=== PATIENT | female | born 1935 | race Caucasian/White ===

== ENCOUNTER 2024-03-25 18:17 | Inpatient (IN) | payer OTHER ==
[2024-03-25] MEDS: LACTATED RINGERS SOLUTION 1000 ML INFUS.BAG IV ONE (19:19)
[2024-03-25 19:37] LABS: BASO % 0.7 % (0-2.0); EOS % 0.3 % (0-4.5); HEMATOCRIT 37.7 % (32.4-45.2); HEMOGLOBIN 12.4 GM/dL (10.7-15.3); LYMPH % 28.1 % (8-40); MCH 31.5 pg (25.7-33.7); MCHC 32.9 g/dl (32.0-36.0); MEAN CELL VOLUME 95.9 fl (80-96); MEAN PLT VOLUME 10.4 fl (7.5-11.1); MONO % 9.7 % (3.8-10.2); NEUT % 61.2 % (42.8-82.8); RBC 3.93 M/mm3 (3.60-5.2); RDW 13.9 % (11.6-15.6)
[2024-03-25 19:44] LABS: INR 1.86 (0.83-1.09); PROTHROMBIN TIME (PATIENT) 20.6 SEC (9.7-13.0)
[2024-03-25 19:45] LABS: PLATELET COUNT 127 10^3/uL (134-434)
[2024-03-25 19:47] LABS: ACTIVATED PTT 36.3 SECONDS (25.2-36.5)
[2024-03-25 20:05] LABS: POTASSIUM 3.9 mmol/L (3.5-5.1)
[2024-03-25 20:07] LABS: ALBUMIN 3.5 g/dl (3.4-5.0); BLOOD UREA NITROGEN 28.4 mg/dL (7-18); CALCIUM 9.3 mg/dL (8.5-10.1); MAGNESIUM 2.2 mg/dL (1.8-2.4)
[2024-03-25 20:10] LABS: CREATININE 1.2 mg/dL (0.55-1.3)
[2024-03-25 20:12] LABS: BILIRUBIN,TOTAL 0.9 mg/dL (0.2-1); TOT PROT 6.9 g/dl (6.4-8.2)
[2024-03-25 20:50] LABS: EPI CELLS 15 /uL (0-25.1); HYALINE CASTS 2 /uL (0-3.1); URINE APPEARANCE CLEAR; URINE BACTERIA 206 /uL (0-1359); URINE BILIRUBIN NEGATIVE (NEGATIVE); URINE COLOR YELLOW; URINE GLUCOSE (UA) NEGATIVE (NEGATIVE); URINE KETONE TRACE (NEGATIVE); URINE LEUK ESTERASE 2+ (NEGATIVE); URINE NITRITE NEGATIVE (NEGATIVE); URINE PROTEIN 1+ (NEGATIVE); URINE RBC 61 /uL (0-23.9); URINE WBC 250 /uL (0-25.8)
[2024-03-25] MEDS ORDERED: CEFTRIAXONE 1 GM/50 ML BAG ONE (21:04)
[2024-03-25] MEDS ORDERED: LACTATED RINGERS SOLUTION 1,000 ML/1,000 ML INFUS.BAG IV SCH (23:45)
[2024-03-26 01:38] LABS: ARTERIAL BLD GAS O2 SATURATION 94.3 % (95-98); ARTERIAL BLOOD GAS BASE EXCESS 0.6 mmol/L (-2-2); ARTERIAL BLOOD GAS PO2 69.4 mmHg (80-100); ARTERIAL BLOOD GAS pH 7.419 (7.350-7.450)
[2024-03-26 01:41] LABS: ALLENS TEST POSITIVE
[2024-03-26] MEDS: METOPROLOL TARTRATE 50 MG TABLET (FP) PO SCH (04:21)
[2024-03-26] MEDS: LACTATED RINGERS SOLUTION 1,000 ML/1,000 ML INFUS.BAG IV SCH (04:22)
[2024-03-26 07:37] LABS: BASO % 0.3 % (0-2.0); EOS % 1.3 % (0-4.5); HEMATOCRIT 39.1 % (32.4-45.2); HEMOGLOBIN 13.2 GM/dL (10.7-15.3); LYMPH % 37.8 % (8-40); MCH 32.1 pg (25.7-33.7); MCHC 33.7 g/dl (32.0-36.0); MEAN CELL VOLUME 95.4 fl (80-96); MEAN PLT VOLUME 10.7 fl (7.5-11.1); NEUT % 50.6 % (42.8-82.8); PLATELET COUNT 124 10^3/uL (134-434); RDW 14.3 % (11.6-15.6); WHITE BLOOD COUNT 6.5 K/mm3 (4.0-10.0)
[2024-03-26 07:50] LABS: POTASSIUM 3.6 mmol/L (3.5-5.1)
[2024-03-26 07:56] LABS: ALBUMIN 3.3 g/dl (3.4-5.0); CALCIUM 9.2 mg/dL (8.5-10.1)
[2024-03-26 07:58] LABS: CREATININE 0.9 mg/dL (0.55-1.3); PHOSPHOROUS 2.8 mg/dL (2.5-4.9)
[2024-03-26 08:00] LABS: TOT PROT 6.9 g/dl (6.4-8.2)
[2024-03-26] MEDS ORDERED: MEMANTINE HCL 10 MG TABLET (FP) PO SCH (10:00)
[2024-03-26] MEDS ORDERED: CRESTOR 5 MG PO SCH (10:00)
[2024-03-26] MEDS: CEFTRIAXONE 1 GM in DEXTROSE 5%-WATER - 50 ML IVPB SCH (10:23)
[2024-03-26] MEDS: amLODIPine BESYLATE 2.5 MG TABLET (FP) PO SCH (10:23)
[2024-03-26] MEDS: PANTOPRAZOLE 40 MG TABLET PO SCH (10:23)
[2024-03-26] MEDS: MEMANTINE HCL 10 MG TABLET (FP) PO SCH (10:24)
[2024-03-26] MEDS: LOSARTAN POTASSIUM 50 MG TABLET PO SCH (10:24)
[2024-03-26] MEDS: RIVAROXABAN 15 MG TABLET PO SCH (10:24)
[2024-03-26 15:08] VITALS: BMI 17.5
[2024-03-26] MEDS: ROSUVASTATIN CA 5 MG TABLET PO SCH (22:09)
[2024-03-27 09:35] LABS: BASO % 0.4 % (0-2.0); EOS % 0.8 % (0-4.5); HEMATOCRIT 39.3 % (32.4-45.2); HEMOGLOBIN 13.3 GM/dL (10.7-15.3); LYMPH % 26.1 % (8-40); MCHC 33.8 g/dl (32.0-36.0); MEAN CELL VOLUME 94.5 fl (80-96); MEAN PLT VOLUME 11.1 fl (7.5-11.1); MONO % 9.3 % (3.8-10.2); NEUT % 63.4 % (42.8-82.8); PLATELET COUNT 133 10^3/uL (134-434); RBC 4.16 M/mm3 (3.60-5.2); WHITE BLOOD COUNT 7.9 K/mm3 (4.0-10.0)
[2024-03-27 09:48] LABS: POTASSIUM 3.5 mmol/L (3.5-5.1)
[2024-03-27 09:50] LABS: BLOOD UREA NITROGEN 22.3 mg/dL (7-18); CALCIUM 9.4 mg/dL (8.5-10.1)
[2024-03-27 09:51] LABS: ALBUMIN 3.5 g/dl (3.4-5.0)
[2024-03-27 09:55] LABS: BILIRUBIN,TOTAL 1.2 mg/dL (0.2-1); TOT PROT 6.8 g/dl (6.4-8.2)
[2024-03-29] MEDS: ACETAMINOPHEN 500 MG TABLET (FP) PO ONE (21:18)
[2024-03-30] MEDS: RIVAROXABAN 15 MG TABLET PO SCH (17:56)
[2024-03-31 15:19] LABS: ARTERIAL BLD GAS O2 SATURATION 99.5 % (95-98); ARTERIAL BLOOD GAS BASE EXCESS -1.5 mmol/L (-2-2); ARTERIAL BLOOD GAS pH 7.402 (7.350-7.450)
[2024-03-31 15:21] LABS: ALLENS TEST POSITIVE
[2024-03-31 17:20] LABS: BASO % 0.3 % (0-2.0); EOS % 1.4 % (0-4.5); HEMATOCRIT 36.7 % (32.4-45.2); HEMOGLOBIN 12.3 GM/dL (10.7-15.3); MCHC 33.6 g/dl (32.0-36.0); MEAN CELL VOLUME 95.4 fl (80-96); MEAN PLT VOLUME 10.8 fl (7.5-11.1); MONO % 11.8 % (3.8-10.2); NEUT % 68.5 % (42.8-82.8); PLATELET COUNT 139 10^3/uL (134-434); RBC 3.85 M/mm3 (3.60-5.2); RDW 13.9 % (11.6-15.6); WHITE BLOOD COUNT 6.5 K/mm3 (4.0-10.0)
[2024-03-31 17:45] LABS: CALCIUM 9.1 mg/dL (8.5-10.1)
[2024-03-31 17:48] LABS: CREATININE 1.1 mg/dL (0.55-1.3)
[2024-03-31 17:49] LABS: BILIRUBIN,TOTAL 0.6 mg/dL (0.2-1); TOT PROT 6.3 g/dl (6.4-8.2)
[2024-04-01 08:33] VITALS: BP 125/70; PULSE 85; RESP 16; TEMP 97.9
== END 2024-04-01 13:35 | disposition home or self-care (01) | DRG 689 ==
LOC: JER 18:17 → JERBED 19:50 → OBSVTOIN 23:40 → J8W 03-26 01:05 → J4W 03-26 02:48
PROVIDERS: ADMIT Internal Medicine; ATTEND Family Medicine
DX: N39.0 Urinary tract infection, site not specified (principal); E43 Unspecified severe protein-calorie malnutrition; G93.41 Metabolic encephalopathy; Z68.1 Body mass index [BMI] 19.9 or less, adult; I48.20 Chronic atrial fibrillation, unspecified; K21.9 Gastro-esophageal reflux disease without esophagitis; E78.00 Pure hypercholesterolemia, unspecified; I10 Essential (primary) hypertension; E11.9 Type 2 diabetes mellitus without complications; I25.10 Atherosclerotic heart disease of native coronary artery without angina pectoris; G20.A1 Parkinson's disease without dyskinesia, without mention of fluctuations; R62.7 Adult failure to thrive; G30.9 Alzheimer's disease, unspecified; F02.80 Dementia in other diseases classified elsewhere, unspecified severity, without behavioral disturbance, psychotic disturbance, mood disturbance, and anxiety; E78.5 Hyperlipidemia, unspecified
CPT/HCPCS: 0241U-QW; 36415; 36600; 70450-TC; 71045-TC-FY; 80053; 81003; 82803; 83735; 84100; 84484; 85025; 85610; 85730; 87086; 93005; 93010; 94761; 97116-GP; 97162-GP; 99285-25; G0378

== ENCOUNTER 2025-07-05 16:35 | Inpatient (IN) | payer OTHER ==
[2025-07-05] MEDS ORDERED: ACETAMINOPHEN INJECTION 100 ML ONE (17:58)
[2025-07-05 18:01] LABS: ABSOLUTE IMMATURE GRANULOCYTES 0.15 x10^3/uL (0.0-0.031); BASOPHILS # 0.02 x10^3/uL (0.01-0.08); EOSINOPHIL % 0.0 % (0.7-5.8); EOSINOPHILS # 0.00 x10^3/uL (0.04-0.36); MCHC 32.0 g/dl (32.2-35.5); MEAN CELL VOLUME 98.3 fl (79.4-94.8); MEAN PLT VOLUME 11.9 fl (9.4-12.3); MONOCYTE # 1.39 x10^3/uL (0.24-0.86); MONOCYTE % 8.0 % (4.7-12.5); RDW 13.6 % (12.5-17.0)
[2025-07-05 18:03] LABS: URINE APPEARANCE CLEAR; URINE BILIRUBIN NEGATIVE (NEGATIVE); URINE COLOR YELLOW; URINE GLUCOSE (UA) NEGATIVE (NEGATIVE); URINE KETONE 1+ (NEGATIVE); URINE LEUK ESTERASE NEGATIVE (NEGATIVE); URINE NITRITE NEGATIVE (NEGATIVE); URINE PROTEIN TRACE (NEGATIVE); URINE UROBILINOGEN 1.0 mg/dL (0.2-1.0)
[2025-07-05 18:09] LABS: INR 2.0 (0.83-1.09); PROTHROMBIN TIME (PATIENT) 22.0 SEC (9.7-13.0)
[2025-07-05 18:12] LABS: ACTIVATED PTT 33.0 SECONDS (25.2-36.5)
[2025-07-05] MEDS: ACETAMINOPHEN 1000 MG/100 ML BAG IVPB ONE (18:13)
[2025-07-05] MEDS: LACTATED RINGERS SOLUTION 1000 ML INFUS.BAG IV ONE ×2 (18:13→19:52)
[2025-07-05 18:22] LABS: GLUCOSE,RANDOM 180.0 mg/dL (74-106)
[2025-07-05 18:23] LABS: TOT PROT 8.3 g/dl (6.4-8.2)
[2025-07-05 18:24] LABS: CO2 22.0 mmol/L (21-32)
[2025-07-05] MEDS ORDERED: AZITHROMYCIN IVPB 500 MG/250 ML BAG IVPB ONE (18:24)
[2025-07-05] MEDS ORDERED: PIPERACILLIN/TAZOB 4.5 GM 4.5 GM/100 ML BAG IVPB ONE (18:24)
[2025-07-05 18:25] LABS: ALK PHOS 78.0 U/L (40-150)
[2025-07-05 18:28] LABS: BG HCT 45.0 % (32.4-45.2); SGOT/AST 54.0 U/L (5-34); SGPT/ALT 44.0 U/L (0-55); VENOUS BASE EXCESS 0.2 mmol/L (-2-2); VENOUS O2 SATURATION 33.1 % (70-80); VENOUS PCO2 46.5 mmHg (38-52); VENOUS PH 7.366 (7.310-7.410)
[2025-07-05 18:29] LABS: LACTIC ACID 2.8 mmol/L (0.4-2.0)
[2025-07-05] MEDS: PIPERACILLIN/TAZOB 4.5 GM 4.5 GM in DEXTROSE 5%-WATER 100 ML IVPB ONE (18:31)
[2025-07-05] MEDS ORDERED: ALBUTEROL SO4 2.5/IPRATROPIUM 0.5 INH SOL 3 ML VIAL.NEB. NEB ONE ×4 (18:42→23:54)
[2025-07-05] MEDS: ALBUTEROL SO4 2.5/IPRATROPIUM 0.5 INH SOL 3 ML VIAL.NEB. NEB ONE (18:48)
[2025-07-05] MEDS: AZITHROMYCIN IVPB 500 MG in DEXTROSE 5%-WATER - 250 ML IVPB ONE (18:48)
[2025-07-05] MEDS: CEFTRIAXONE 1 MG in DEXTROSE 5%-WATER - 50 ML IVPB ONE (18:48)
[2025-07-05 19:01] LABS: CREATININE 1.41 mg/dL (0.55-1.3)
[2025-07-05] MEDS ORDERED: VANCOMYCIN 1 GM PREMIX (F) 1 GM/200 ML BAG ONE (20:04)
[2025-07-05] MEDS: VANCOMYCIN 1,000 MG in DEXTROSE 5%-WATER - 250 ML IVPB ONE (20:06)
[2025-07-05 21:29] LABS: LACTIC ACID 3.8 mmol/L (0.4-2.0)
[2025-07-05] MEDS: INSULIN ASPART SLIDING SCALE (NOVOLOG) 1 VIAL SQ SCH (22:24)
[2025-07-05] MEDS: SODIUM CHLORIDE 0.45% 1,000 ML IV SCH (22:53)
[2025-07-05 23:24] LABS: EPI CELLS 7 /uL (0-25.1); HYALINE CASTS 0 /uL (0-3.1); URINE APPEARANCE CLEAR; URINE BACTERIA 113 /uL (0-1359); URINE BILIRUBIN NEGATIVE (NEGATIVE); URINE COLOR YELLOW; URINE GLUCOSE (UA) NEGATIVE (NEGATIVE); URINE KETONE NEGATIVE (NEGATIVE); URINE LEUK ESTERASE NEGATIVE (NEGATIVE); URINE NITRITE NEGATIVE (NEGATIVE); URINE PROTEIN NEGATIVE (NEGATIVE); URINE RBC 63 /uL (0-23.9); URINE UROBILINOGEN 0.2 mg/dL (0.2-1.0); URINE WBC 5 /uL (0-25.8)
[2025-07-05 23:27] LABS: LACTIC ACID 4.4 mmol/L (0.4-2.0)
[2025-07-05] MEDS: ALBUTEROL SO4 2.5/IPRATROPIUM 0.5 INH SOL 3 ML VIAL.NEB. NEB PRN (23:54)
[2025-07-06] MEDS ORDERED: AMIODARONE IN DEXTROSE,ISO-OSM 150 MG/100 ML BAG ONE (00:44)
[2025-07-06] MEDS: AMIODARONE HCL INJECTION 150 MG in DEXTROSE 5%-WATER - 100 ML IVPB ONE (00:50)
[2025-07-06] MEDS ORDERED: ALBUTEROL SO4 2.5/IPRATROPIUM 0.5 INH SOL 3 ML VIAL.NEB. NEB PRN (02:00)
[2025-07-06] MEDS: AMIODARONE IN DEXTROSE,ISO-OSM 360 MG/200 ML BAG IV SCH ×2 (02:01→07:45)
[2025-07-06] MEDS: FUROSEMIDE 40 MG/4 ML INJECTABLE VIAL IVPUSH ONE (02:01)
[2025-07-06] MEDS: PIPERACILLIN/TAZOB 2.25 GM 2.25 GM in DEXTROSE 5%-WATER - 50 ML IVPB SCH ×2 (02:06→14:52)
[2025-07-06] MEDS ORDERED: ACETAMINOPHEN 1000 MG/100 ML BAG IVPB PRN (02:19)
[2025-07-06 03:14] VITALS: BMI 18.7
[2025-07-06 06:37] LABS: MEAN CELL VOLUME 98.3 fl (79.4-94.8)
[2025-07-06 06:39] LABS: IMMATURE PLATELET FRACTION # 6.80 x10^3/uL; MCHC 32.2 g/dl (32.2-35.5); MEAN PLT VOLUME 11.5 fl (9.4-12.3); RDW 13.6 % (12.5-17.0)
[2025-07-06 07:08] LABS: GLUCOSE,RANDOM 147.0 mg/dL (74-106)
[2025-07-06 07:09] LABS: CO2 20.0 mmol/L (21-32)
[2025-07-06 07:14] LABS: LACTIC ACID 4.0 mmol/L (0.4-2.0)
[2025-07-06] MEDS: LEVALBUTEROL HCL 0.31 MG/3 ML VIAL.NEB IH SCH (07:20)
[2025-07-06 07:29] LABS: CREATININE 1.36 mg/dL (0.55-1.3)
[2025-07-06] MEDS ORDERED: ALBUTEROL SO4 2.5/IPRATROPIUM 0.5 INH SOL 3 ML VIAL.NEB. NEB SCH (08:00)
[2025-07-06] MEDS: MAGNESIUM SULFATE IN WATER 2 GM/50 ML IVPB IVPB ONE (09:16)
[2025-07-06 10:41] LABS: LACTIC ACID 2.9 mmol/L (0.4-2.0)
[2025-07-06 10:47] LABS: ALLENS TEST POSITIVE; ARTERIAL BLD GAS O2 SATURATION 93.5 % (95-98); ARTERIAL BLOOD GAS BASE EXCESS 1.1 mmol/L (-2-2); ARTERIAL BLOOD GAS PCO2 33.80 mmHg (35-45); ARTERIAL BLOOD GAS PO2 62.5 mmHg (80-100); BG HCT 37.0 % (32.4-45.2); O2 CONTENT 1.64 % vol
[2025-07-06 11:50] LABS: TOT PROT 6.7 g/dl (6.4-8.2)
[2025-07-06 11:52] LABS: ALK PHOS 56.0 U/L (40-150)
[2025-07-06 11:55] LABS: SGOT/AST 39.0 U/L (5-34); SGPT/ALT 31.0 U/L (0-55)
[2025-07-06 12:08] LABS: LACTIC ACID 2.7 mmol/L (0.4-2.0)
[2025-07-06] MEDS: methylPREDNISolone NA SUCC 40 MG/1 ML VIAL IVPUSH SCH (12:28)
[2025-07-06] MEDS: METOPROLOL TARTRATE 5 MG/5 ML VIAL IVPUSH SCH (12:28)
[2025-07-06] MEDS ORDERED: HEPARIN NA (PORCINE) 5,000 UNITS/ML 1ML VIAL SQ SCH (14:00)
[2025-07-06] MEDS: AMIODARONE IN DEXTROSE,ISO-OSM 150 MG/100 ML BAG IVPB ONE (14:52)
[2025-07-06] MEDS: PIPERACILLIN/TAZOB 3.375 GM 3.375 GM in DEXTROSE 5%-WATER - 50 ML IVPB SCH (17:11)
[2025-07-06 18:27] LABS: LACTIC ACID 2.7 mmol/L (0.4-2.0)
[2025-07-06] MEDS: AZITHROMYCIN IVPB 500 MG/250 ML BAG IVPB SCH (21:39)
[2025-07-06 22:44] LABS: LACTIC ACID 2.8 mmol/L (0.4-2.0)
[2025-07-07] MEDS: FUROSEMIDE 40 MG/4 ML INJECTABLE VIAL IVPUSH ONE (06:36)
[2025-07-07] MEDS: INSULIN ASPART SLIDING SCALE (NOVOLOG) 1 VIAL SQ SCH (06:36)
[2025-07-07 07:31] LABS: MCHC 33.1 g/dl (32.2-35.5); MEAN CELL VOLUME 94.7 fl (79.4-94.8); MEAN PLT VOLUME 12.6 fl (9.4-12.3); RDW 13.3 % (12.5-17.0)
[2025-07-07 08:10] LABS: GLUCOSE,RANDOM 170.0 mg/dL (74-106)
[2025-07-07 08:11] LABS: TOT PROT 7.5 g/dl (6.4-8.2)
[2025-07-07 08:12] LABS: CO2 27.0 mmol/L (21-32); LACTIC ACID 2.7 mmol/L (0.4-2.0)
[2025-07-07 08:13] LABS: ALK PHOS 55.0 U/L (40-150)
[2025-07-07] MEDS: LEVALBUTEROL HCL 0.31 MG/3 ML VIAL.NEB IH SCH (08:15)
[2025-07-07 08:16] LABS: SGOT/AST 38.0 U/L (5-34); SGPT/ALT 31.0 U/L (0-55)
[2025-07-07 08:29] LABS: CREATININE 1.32 mg/dL (0.55-1.3)
[2025-07-07] MEDS: ACETAMINOPHEN 1000 MG/100 ML BAG IVPB PRN (09:34)
[2025-07-07] MEDS: methylPREDNISolone NA SUCC 40 MG/1 ML VIAL IVPUSH SCH (09:34)
[2025-07-07] MEDS: ENOXAPARIN NA (PORCINE) 30 MG/0.3 ML DISP.SYRIN SQ SCH (09:36)
[2025-07-07] MEDS ORDERED: ENOXAPARIN NA (PORCINE) 30 MG/0.3 ML DISP.SYRIN SQ SCH (10:00)
[2025-07-07 10:21] LABS: LACTIC ACID 2.5 mmol/L (0.4-2.0)
[2025-07-07] MEDS: METOPROLOL TARTRATE 5 MG/5 ML VIAL IVPUSH PRN (17:03)
[2025-07-07] MEDS: AZITHROMYCIN IVPB 500 MG/250 ML BAG IVPB SCH (21:25)
[2025-07-10] MEDS ORDERED: DEXTROSE 50%-WATER 25 GM/50 ML DISP.SYRIN ONE (06:49)
[2025-07-10] MEDS: DEXTROSE 50%-WATER 25 GM/50 ML DISP.SYRIN IVPUSH ONE (06:58)
[2025-07-10] MEDS: DEXTROSE 5%-0.45% SALINE 1,000 ML IV SCH (06:59)
[2025-07-10 07:43] LABS: ABSOLUTE IMMATURE GRANULOCYTES 0.04 x10^3/uL (0.0-0.031); BASOPHILS # 0.00 x10^3/uL (0.01-0.08); EOSINOPHIL % 0.0 % (0.7-5.8); EOSINOPHILS # 0.00 x10^3/uL (0.04-0.36); MCHC 32.6 g/dl (32.2-35.5); MEAN CELL VOLUME 94.6 fl (79.4-94.8); MEAN PLT VOLUME 11.7 fl (9.4-12.3); MONOCYTE # 0.93 x10^3/uL (0.24-0.86); MONOCYTE % 11.3 % (4.7-12.5); RDW 12.6 % (12.5-17.0)
[2025-07-10 08:12] LABS: GLUCOSE,RANDOM 119 mg/dL (74-106); TOT PROT 6.3 g/dl (6.4-8.2)
[2025-07-10 08:13] LABS: CO2 32 mmol/L (21-32)
[2025-07-10 08:15] LABS: ALK PHOS 47 U/L (40-150)
[2025-07-10 08:17] LABS: SGPT/ALT 50 U/L (0-55)
[2025-07-10 08:18] LABS: CREATININE 1.22 mg/dL (0.55-1.3); SGOT/AST 57 U/L (5-34)
[2025-07-10] MEDS: KCL 10 MEQ IVPB 10 MEQ/100 ML INFUS.BAG IVPB SCH (13:15)
[2025-07-10] MEDS: D5-1/2NS+20 MEQ KCL - 20 MEQ/1,000 ML INFUS.BAG IV SCH (13:15)
[2025-07-11 07:01] LABS: ABSOLUTE IMMATURE GRANULOCYTES 0.06 x10^3/uL (0.0-0.031); BASOPHILS # 0.01 x10^3/uL (0.01-0.08); EOSINOPHIL % 0.0 % (0.7-5.8); EOSINOPHILS # 0.00 x10^3/uL (0.04-0.36); MCHC 33.2 g/dl (32.2-35.5); MEAN CELL VOLUME 93.5 fl (79.4-94.8); MEAN PLT VOLUME 11.6 fl (9.4-12.3); MONOCYTE # 1.40 x10^3/uL (0.24-0.86); MONOCYTE % 13.4 % (4.7-12.5); RDW 12.6 % (12.5-17.0)
[2025-07-11 07:23] LABS: GLUCOSE,RANDOM 160.0 mg/dL (74-106); TOT PROT 6.0 g/dl (6.4-8.2)
[2025-07-11 07:26] LABS: ALK PHOS 42.0 U/L (40-150)
[2025-07-11 07:28] LABS: SGPT/ALT 37.0 U/L (0-55)
[2025-07-11 07:29] LABS: CREATININE 0.96 mg/dL (0.55-1.3); SGOT/AST 38.0 U/L (5-34)
[2025-07-11 07:30] LABS: CO2 25.0 mmol/L (21-32)
[2025-07-11] MEDS: POTASSIUM PHOSPHATE 15 MM in SODIUM CHLORIDE 250 ML IVPB ONE (14:30)
[2025-07-12 07:35] LABS: BASOPHILS # 0.01 x10^3/uL (0.01-0.08); MEAN CELL VOLUME 94.0 fl (79.4-94.8); RDW 12.9 % (12.5-17.0)
[2025-07-12 07:36] LABS: ABSOLUTE IMMATURE GRANULOCYTES 0.09 x10^3/uL (0.0-0.031); EOSINOPHIL % 0.3 % (0.7-5.8); EOSINOPHILS # 0.03 x10^3/uL (0.04-0.36); IMMATURE PLATELET FRACTION # 5.40 x10^3/uL; MCHC 32.7 g/dl (32.2-35.5); MEAN PLT VOLUME 11.5 fl (9.4-12.3); MONOCYTE # 1.04 x10^3/uL (0.24-0.86); MONOCYTE % 12.0 % (4.7-12.5)
[2025-07-12 08:58] LABS: CREATININE 0.86 mg/dL (0.55-1.3); GLUCOSE,RANDOM 123.0 mg/dL (74-106)
[2025-07-12 08:59] LABS: CO2 29.0 mmol/L (21-32); TOT PROT 5.7 g/dl (6.4-8.2)
[2025-07-12 09:00] LABS: ALK PHOS 42.0 U/L (40-150); SGOT/AST 28.0 U/L (5-34); SGPT/ALT 27.0 U/L (0-55)
[2025-07-12] MEDS: KCL 10 MEQ IVPB 10 MEQ/100 ML INFUS.BAG IVPB SCH (12:17)
[2025-07-12] MEDS: LEVALBUTEROL HCL 0.31 MG/3 ML VIAL.NEB IH SCH (20:00)
[2025-07-12] MEDS: INSULIN ASPART SLIDING SCALE (NOVOLOG) 1 VIAL SQ SCH (21:42)
[2025-07-12] MEDS: AZITHROMYCIN IVPB 500 MG/250 ML BAG IVPB SCH (21:43)
[2025-07-12] MEDS: D5-1/2NS+20 MEQ KCL - 20 MEQ/1,000 ML INFUS.BAG IV SCH (22:58)
[2025-07-13] MEDS: PIPERACILLIN/TAZOB 3.375 GM 3.375 GM in DEXTROSE 5%-WATER - 50 ML IVPB SCH (01:12)
[2025-07-13] MEDS: METOPROLOL TARTRATE 5 MG/5 ML VIAL IVPUSH PRN (08:22)
[2025-07-13] MEDS: ENOXAPARIN NA (PORCINE) 30 MG/0.3 ML DISP.SYRIN SQ SCH (09:59)
[2025-07-13 13:05] LABS: GLUCOSE,RANDOM 129.0 mg/dL (74-106); TOT PROT 5.6 g/dl (6.4-8.2)
[2025-07-13 13:06] LABS: CO2 26.0 mmol/L (21-32)
[2025-07-13 13:08] LABS: ALK PHOS 44.0 U/L (40-150)
[2025-07-13 13:11] LABS: CREATININE 0.78 mg/dL (0.55-1.3); SGOT/AST 24.0 U/L (5-34); SGPT/ALT 20.0 U/L (0-55)
[2025-07-14 07:23] LABS: GLUCOSE,RANDOM 107.0 mg/dL (74-106); TOT PROT 5.6 g/dl (6.4-8.2)
[2025-07-14 07:24] LABS: CO2 25.0 mmol/L (21-32)
[2025-07-14 07:26] LABS: ALK PHOS 43.0 U/L (40-150)
[2025-07-14 07:29] LABS: CREATININE 0.83 mg/dL (0.55-1.3); SGOT/AST 22.0 U/L (5-34); SGPT/ALT 16.0 U/L (0-55)
[2025-07-14] MEDS: KCL 10 MEQ IVPB 10 MEQ/100 ML INFUS.BAG IVPB SCH (13:51)
[2025-07-14] MEDS ORDERED: PIPERACILLIN/TAZOBACTAM 3.375 GM VIAL IVPB ONE (22:18)
[2025-07-15 07:00] LABS: BASOPHILS # 0.01 x10^3/uL (0.01-0.08); MEAN CELL VOLUME 96.3 fl (79.4-94.8); RDW 13.4 % (12.5-17.0)
[2025-07-15 07:01] LABS: ABSOLUTE IMMATURE GRANULOCYTES 0.04 x10^3/uL (0.0-0.031); EOSINOPHIL % 5.3 % (0.7-5.8); EOSINOPHILS # 0.35 x10^3/uL (0.04-0.36); IMMATURE PLATELET FRACTION # 5.30 x10^3/uL; MCHC 32.2 g/dl (32.2-35.5); MEAN PLT VOLUME 11.3 fl (9.4-12.3); MONOCYTE # 0.74 x10^3/uL (0.24-0.86); MONOCYTE % 11.1 % (4.7-12.5)
[2025-07-15 07:39] LABS: GLUCOSE,RANDOM 108.0 mg/dL (74-106)
[2025-07-15 07:40] LABS: TOT PROT 5.2 g/dl (6.4-8.2)
[2025-07-15 07:41] LABS: CO2 23.0 mmol/L (21-32)
[2025-07-15 07:42] LABS: ALK PHOS 41.0 U/L (40-150)
[2025-07-15 07:45] LABS: CREATININE 0.92 mg/dL (0.55-1.3); SGOT/AST 23.0 U/L (5-34); SGPT/ALT 14.0 U/L (0-55)
[2025-07-15] MEDS: MAGNESIUM 1GM/D5W 100ML - 100 ML IVPB IVPB ONE (12:17)
[2025-07-15 13:04] LABS: IRON SERUM 48.0 ug/dL (50-175)
[2025-07-15] MEDS: IRON SUCROSE INJECTION 200 MG in SODIUM CHLORIDE 100 ML IVPB ONE (13:55)
[2025-07-15] MEDS: AMINO ACIDS/PROTEIN HYDROLYS 30 ML LIQUID.PKT PO SCH (17:06)
[2025-07-15] MEDS: ACETAMINOPHEN 1000 MG/100 ML BAG IVPB PRN (17:37)
[2025-07-16] MEDS ORDERED: PIPERACILLIN/TAZOBACTAM 3.375 GM VIAL IVPB ONE (01:58)
[2025-07-17 07:01] LABS: MCHC 32.0 g/dl (32.2-35.5); MEAN CELL VOLUME 96.8 fl (79.4-94.8); MEAN PLT VOLUME 11.4 fl (9.4-12.3); RDW 14.0 % (12.5-17.0)
[2025-07-17 07:25] LABS: GLUCOSE,RANDOM 105.0 mg/dL (74-106); TOT PROT 6.0 g/dl (6.4-8.2)
[2025-07-17 07:26] LABS: CO2 22.0 mmol/L (21-32)
[2025-07-17 07:28] LABS: ALK PHOS 48.0 U/L (40-150)
[2025-07-17 07:30] LABS: SGOT/AST 26.0 U/L (5-34); SGPT/ALT 16.0 U/L (0-55)
[2025-07-17 07:31] LABS: CREATININE 0.92 mg/dL (0.55-1.3)
[2025-07-17] MEDS ORDERED: DEXTROSE 50%-WATER 25 GM/50 ML DISP.SYRIN IVPUSH PRN (17:31)
[2025-07-18 06:53] LABS: ABSOLUTE IMMATURE GRANULOCYTES 0.04 x10^3/uL (0.0-0.031); BASOPHILS # 0.02 x10^3/uL (0.01-0.08); EOSINOPHIL % 2.1 % (0.7-5.8); EOSINOPHILS # 0.14 x10^3/uL (0.04-0.36); MCHC 32.0 g/dl (32.2-35.5); MEAN CELL VOLUME 97.1 fl (79.4-94.8); MEAN PLT VOLUME 11.0 fl (9.4-12.3); MONOCYTE # 1.06 x10^3/uL (0.24-0.86); MONOCYTE % 16.1 % (4.7-12.5); RDW 14.1 % (12.5-17.0)
[2025-07-18 07:02] LABS: INR 1.18 (0.83-1.09); PROTHROMBIN TIME (PATIENT) 13.0 SEC (9.7-13.0)
[2025-07-18 07:18] LABS: GLUCOSE,RANDOM 81.0 mg/dL (74-106); TOT PROT 6.1 g/dl (6.4-8.2)
[2025-07-18 07:19] LABS: CO2 22.0 mmol/L (21-32)
[2025-07-18 07:21] LABS: ALK PHOS 47.0 U/L (40-150)
[2025-07-18 07:23] LABS: SGOT/AST 25.0 U/L (5-34); SGPT/ALT 12.0 U/L (0-55)
[2025-07-18 07:24] LABS: CREATININE 0.83 mg/dL (0.55-1.3)
[2025-07-19] MEDS: DEXTROSE 50%-WATER 25 GM/50 ML DISP.SYRIN IVPUSH PRN (10:57)
[2025-07-21 06:48] LABS: ABSOLUTE IMMATURE GRANULOCYTES 0.02 x10^3/uL (0.0-0.031); BASOPHILS # 0.04 x10^3/uL (0.01-0.08); EOSINOPHIL % 0.3 % (0.7-5.8); EOSINOPHILS # 0.02 x10^3/uL (0.04-0.36); MCHC 32.4 g/dl (32.2-35.5); MEAN CELL VOLUME 95.4 fl (79.4-94.8); MEAN PLT VOLUME 11.3 fl (9.4-12.3); MONOCYTE # 0.87 x10^3/uL (0.24-0.86); MONOCYTE % 12.9 % (4.7-12.5); RDW 14.4 % (12.5-17.0)
[2025-07-21 07:12] LABS: INR 1.17 (0.83-1.09); PROTHROMBIN TIME (PATIENT) 12.7 SEC (9.7-13.0)
[2025-07-21 07:13] LABS: GLUCOSE,RANDOM 96.0 mg/dL (74-106); TOT PROT 6.4 g/dl (6.4-8.2)
[2025-07-21 07:14] LABS: CO2 17.0 mmol/L (21-32)
[2025-07-21 07:16] LABS: ALK PHOS 53.0 U/L (40-150)
[2025-07-21 07:18] LABS: CREATININE 0.81 mg/dL (0.55-1.3); SGOT/AST 27.0 U/L (5-34); SGPT/ALT 12.0 U/L (0-55)
[2025-07-21] MEDS ORDERED: D5-1/2NS+30 MEQ KCL - 30 MEQ/1,000 ML INFUS.BAG IV SCH (09:00)
[2025-07-21] MEDS ORDERED: GLUCAGON 1 MG KIT ONE (10:18)
[2025-07-21] MEDS ORDERED: FENTANYL CITRATE/PF 50 MCG/ML VIAL ONE ×2 (10:19→11:12)
[2025-07-21] MEDS ORDERED: MIDAZOLAM HCL 2 MG/2 ML SINGLE DOSE VIAL ONE (10:19)
[2025-07-21] MEDS: FENTANYL CITRATE/PF 50 MCG/ML VIAL IVPUSH SCH (11:06)
[2025-07-21] MEDS: GlUCAGON HUMAN RECOMBINANT 1 MG/VIAL IVPB ONE (11:08)
[2025-07-21] MEDS: ALBUTEROL SO4 2.5/IPRATROPIUM 0.5 INH SOL 3 ML VIAL.NEB. NEB SCH (11:59)
[2025-07-21] MEDS: KCL 10 MEQ IVPB 10 MEQ/100 ML INFUS.BAG IVPB SCH (12:32)
[2025-07-21] MEDS: POTASSIUM CHLORIDE 30 MEQ in DEXTROSE 5%-0.45% SALINE 1,000 ML IV SCH (15:55)
[2025-07-21] MEDS ORDERED: KETOROLAC TROMETHAMINE 15 MG/ML VIAL IVPUSH PRN (18:01)
[2025-07-21] MEDS: KETOROLAC TROMETHAMINE 15 MG/ML VIAL IVPUSH ONE (20:54)
[2025-07-22] MEDS: IOHEXOL (OMNIPAQUE IV) 350 MG/ML - 100 ML BOTTLE PO ONE (13:11)
[2025-07-23 08:31] LABS: ABSOLUTE IMMATURE GRANULOCYTES 0.04 x10^3/uL (0.0-0.031); BASOPHILS # 0.03 x10^3/uL (0.01-0.08); EOSINOPHIL % 0.1 % (0.7-5.8); EOSINOPHILS # 0.01 x10^3/uL (0.04-0.36); MCHC 32.7 g/dl (32.2-35.5); MEAN CELL VOLUME 96.5 fl (79.4-94.8); MEAN PLT VOLUME 11.4 fl (9.4-12.3); MONOCYTE # 0.84 x10^3/uL (0.24-0.86); MONOCYTE % 9.3 % (4.7-12.5); RDW 14.8 % (12.5-17.0)
[2025-07-23 08:44] LABS: GLUCOSE,RANDOM 127.0 mg/dL (74-106)
[2025-07-23 08:45] LABS: TOT PROT 5.7 g/dl (6.4-8.2)
[2025-07-23 08:46] LABS: CO2 21.0 mmol/L (21-32)
[2025-07-23 08:47] LABS: ALK PHOS 48.0 U/L (40-150)
[2025-07-23 08:50] LABS: CREATININE 0.63 mg/dL (0.55-1.3); SGOT/AST 22.0 U/L (5-34); SGPT/ALT 7.0 U/L (0-55)
[2025-07-23] MEDS: ROSUVASTATIN CA 5 MG TABLET NR SCH (12:23)
[2025-07-23] MEDS: METOPROLOL TARTRATE 25 MG TABLET (FP) PEG SCH (12:23)
[2025-07-23] MEDS: FAMOTIDINE 20 MG/2.5 ML ORAL LIQUID PEG SCH (12:24)
[2025-07-23] MEDS: RIVAROXABAN 15 MG TABLET PEG SCH (17:54)
[2025-07-23 18:33] LABS: EPI CELLS >36 /uL (0-25.1); HYALINE CASTS 2 /uL (0-3.1); URINE APPEARANCE TURBID; URINE BILIRUBIN NEGATIVE (NEGATIVE); URINE COLOR DK YELLOW; URINE GLUCOSE (UA) NEGATIVE (NEGATIVE); URINE KETONE NEGATIVE (NEGATIVE); URINE LEUK ESTERASE NEGATIVE (NEGATIVE); URINE NITRITE NEGATIVE (NEGATIVE); URINE PROTEIN 1+ (NEGATIVE); URINE RBC 6 /uL (0-23.9); URINE UROBILINOGEN 0.2 mg/dL (0.2-1.0)
[2025-07-23 21:54] LABS: URINE BACTERIA 27.6 /uL (0-1359)
[2025-07-23 21:55] LABS: URINE CRYSTALS NOT SEEN /hpf; YEAST SEEN (NEGATIVE)
[2025-07-25 08:36] LABS: MCHC 32.5 g/dl (32.2-35.5); MEAN CELL VOLUME 95.9 fl (79.4-94.8); MEAN PLT VOLUME 11.7 fl (9.4-12.3); RDW 15.1 % (12.5-17.0)
[2025-07-25 09:05] LABS: GLUCOSE,RANDOM 108.0 mg/dL (74-106)
[2025-07-25 09:06] LABS: TOT PROT 5.5 g/dl (6.4-8.2)
[2025-07-25 09:07] LABS: CO2 19.0 mmol/L (21-32)
[2025-07-25 09:08] LABS: ALK PHOS 62.0 U/L (40-150)
[2025-07-25 09:11] LABS: CREATININE 0.72 mg/dL (0.55-1.3); SGOT/AST 23.0 U/L (5-34); SGPT/ALT 7.0 U/L (0-55)
[2025-07-25] MEDS: METOPROLOL TARTRATE 25 MG TABLET (FP) PEG SCH (10:48)
[2025-07-25] MEDS: VANCOMYCIN ORAL SOLUTION 125 MG/2.5 ML PEG SCH (12:32)
[2025-07-25] MEDS: AMOX TR/POTASSIUM CLAVULANATE 600 MG/5 ML PEG SCH (14:12)
[2025-07-25 23:02] VITALS: RESP 22
[2025-07-26 16:52] VITALS: BP 122/75; PULSE 105; TEMP 98
== END 2025-07-26 17:41 | DRG 871 ==
LOC: JER 16:35 → JERBED 18:04 → JICU 07-06 01:34 → J2W 07-06 20:33 → J4W 07-11 17:04
PROVIDERS: ADMIT Family Medicine; ATTEND Family Medicine
PROC: 0DH63UZ Insertion of Feeding Device into Stomach, Percutaneous Approach (ICD-10-PCS; principal; 2025-07-21)
PROC: BD12YZZ Fluoroscopy of Stomach using Other Contrast (ICD-10-PCS; 2025-07-21)
DX: A41.9 Sepsis, unspecified organism (principal); E43 Unspecified severe protein-calorie malnutrition; J96.01 Acute respiratory failure with hypoxia; J69.0 Pneumonitis due to inhalation of food and vomit; R53.2 Functional quadriplegia; N17.9 Acute kidney failure, unspecified; R64 Cachexia; Z68.1 Body mass index [BMI] 19.9 or less, adult; E87.20 Acidosis, unspecified; E11.9 Type 2 diabetes mellitus without complications; G30.9 Alzheimer's disease, unspecified; G20.A1 Parkinson's disease without dyskinesia, without mention of fluctuations; F02.80 Dementia in other diseases classified elsewhere, unspecified severity, without behavioral disturbance, psychotic disturbance, mood disturbance, and anxiety; I11.0 Hypertensive heart disease with heart failure; E11.65 Type 2 diabetes mellitus with hyperglycemia; I25.10 Atherosclerotic heart disease of native coronary artery without angina pectoris; E78.5 Hyperlipidemia, unspecified; I48.91 Unspecified atrial fibrillation; E83.42 Hypomagnesemia; R62.7 Adult failure to thrive
CPT/HCPCS: 36415; 36600; 49440; 71045-TC-FY; 71250-TC; 74018-TC-FY; 76604; 80048; 80053; 80076; 81003; 82550; 82803; 82962; 83540; 83605; 83735; 84100; 84443; 84484; 85025; 85027; 85610; 85730; 86803; 87040; 87086; 87389; 87637-QW; 87899; 93005; 93010; 93306-TC; 93308; 94640; 97161-GP; 99291; J1756